=== PATIENT | male | born 1975 | race Caucasian/White ===

== ENCOUNTER → 2017-10-25 | Outpatient (CLI) | payer OTHER ==
[2017-10-25 17:23] LABS: BASO % 0.5 % (0.0-1.0); EOS % 0.4 % (0.0-3.0); HEMATOCRIT 49.1 % (42.0-52.0); HEMOGLOBIN 16.3 g/dl (13.5-17.5); IMMATURE GRANULOCYTE % 0.3 % (0-3.0); LYMPH % 26.4 % (24.0-44.0); MEAN CORPUSCULAR HGB CONC 33.2 g/dl (32.0-36.5); MEAN CORPUSCULAR VOLUME 93.5 fl (80.0-96.0); MONO # 0.6 10^3/uL (0.0-0.8); NEUTROPHILS % 64.4 % (36.0-66.0); PLATELET COUNT, AUTOMATED 226 10^3/uL (150-450); RED BLOOD COUNT 5.25 10^6/uL (4.30-6.10); RED CELL DISTRIBUTION WIDTH 12.9 % (11.5-14.5); WHITE BLOOD COUNT 7.7 10^3/uL (4.0-10.0)
[2017-10-25 17:41] LABS: ALBUMIN 4.1 GM/DL (3.2-5.2); ALBUMIN/GLOBULIN RATIO 1.28 (1.00-1.93); ALKALINE PHOSPHATASE 53 U/L (45-117); ALT/SGPT 44 U/L (12-78); ANION GAP 10 MEQ/L (8-16); AST/SGOT 13 U/L (7-37); BILIRUBIN,TOTAL 0.5 MG/DL (0.2-1.0); BLOOD UREA NITROGEN 15 MG/DL (7-18); C REACTIVE PROTEIN QUANTITATIV < 0.30 MG/DL (0.00-0.30); CALCIUM LEVEL 8.9 MG/DL (8.5-10.1); CARBON DIOXIDE LEVEL 24 MEQ/L (21-32); CHLORIDE LEVEL 107 MEQ/L (98-107); FREE T4 1.06 NG/DL (0.76-1.46); GLOMERULAR FILTRATION RATE > 60.0 (>60); GLUCOSE, FASTING 101 MG/DL (70-100); POTASSIUM SERUM 4.4 MEQ/L (3.5-5.1); SODIUM LEVEL 141 MEQ/L (136-145); TOTAL PROTEIN 7.3 GM/DL (6.4-8.2)
[2017-10-27 15:01] LABS: PSA TOTAL 0.9 ng/mL (0.0-4.0)
== END ==
LOC: M WUC 10:53
DX: R30.0 Dysuria (principal); R39.12 Poor urinary stream
CPT/HCPCS: 84443

== ENCOUNTER → 2017-11-15 | Outpatient (REF) | payer OTHER ==
[2017-11-15 14:16] LABS: AMORPHOUS SEDIMENT LARGE (NEGATIVE); APPEARANCE, URINE TURBID (CLEAR); BACTERIA, URINE AUTO NEGATIVE (NEGATIVE); BILIRUBIN, URINE AUTO NEGATIVE (NEGATIVE); BLOOD, URINE BLOOD 1+ (NEGATIVE); COLOR, URINE YELLOW (YELLOW); GLUCOSE, URINE (UA) AUTO NEGATIVE (NEGATIVE); KETONE, URINE AUTO NEGATIVE (NEGATIVE); LEUKOCYTE ESTERASE, URINE AUTO NEGATIVE (NEGATIVE); MUCUS, URINE SMALL (NEGATIVE); NITRITE, URINE AUTO NEGATIVE (NEGATIVE); PROTEIN, URINE AUTO NEGATIVE (NEGATIVE); RBC, URINE AUTO 0 /HPF (0-3); SPECIFIC GRAVITY URINE AUTO 1.024 (1.002-1.035); SQUAMOUS EPITHELIAL CELL UR AU 0 /HPF (0-6); UROBILINOGEN, URINE AUTO 0.2 mg/dL (0.0-2.0); WBC, URINE AUTO 0 /HPF (0-3)
== END ==
LOC: M SMT 13:26
DX: R39.198 Other difficulties with micturition (principal)

== ENCOUNTER → 2017-12-14 | Outpatient (REF) | payer OTHER ==
[2017-12-14 17:55] LABS: APPEARANCE, URINE CLEAR (CLEAR); BACTERIA, URINE AUTO NEGATIVE (NEGATIVE); BILIRUBIN, URINE AUTO NEGATIVE (NEGATIVE); BLOOD, URINE BLOOD 1+ (NEGATIVE); COLOR, URINE YELLOW (YELLOW); GLUCOSE, URINE (UA) AUTO NEGATIVE (NEGATIVE); KETONE, URINE AUTO NEGATIVE (NEGATIVE); LEUKOCYTE ESTERASE, URINE AUTO NEGATIVE (NEGATIVE); MUCUS, URINE SMALL (NEGATIVE); NITRITE, URINE AUTO NEGATIVE (NEGATIVE); PROTEIN, URINE AUTO NEGATIVE (NEGATIVE); RBC, URINE AUTO 2 /HPF (0-3); SPECIFIC GRAVITY URINE AUTO 1.024 (1.002-1.035); SQUAMOUS EPITHELIAL CELL UR AU 0 /HPF (0-6); WBC, URINE AUTO 1 /HPF (0-3)
== END ==
LOC: M SMT 17:15
DX: R39.198 Other difficulties with micturition (principal)

== ENCOUNTER 2017-12-15 09:28 | Day surgery (SDC) | payer OTHER ==
[2017-12-15] MEDS: CIPROFLOXACIN 400 MG in APPROPRIATE DILUENT 1 EA IV (10:18)
[2017-12-15] MEDS: GENTAMICIN 100 MG in APPROPRIATE DILUENT 1 EA IV (10:18)
[2017-12-15 10:20] LABS: PROTHROMBIN TIME 13.3 SECONDS (12.1-14.4)
[2017-12-15 10:21] LABS: PARTIAL THROMBOPLASTIN TIME 35.1 SECONDS (25.4-37.6)
[2017-12-15 10:25] LABS: BASO # 0.1 10^3/uL (0.0-0.2); BASO % 0.7 % (0.0-1.0); EOS # 0.1 10^3/uL (0.0-0.50); EOS % 0.7 % (0.0-3.0); HEMATOCRIT 51.5 % (42.0-52.0); HEMOGLOBIN 17.1 g/dl (13.5-17.5); IMMATURE GRANULOCYTE % 0.4 % (0-3.0); LYMPH # 2.2 10^3/uL (1.5-4.5); MEAN CORPUSCULAR HEMOGLOBIN 31.1 pg (27.0-33.0); MEAN CORPUSCULAR HGB CONC 33.2 g/dl (32.0-36.5); MEAN CORPUSCULAR VOLUME 93.6 fl (80.0-96.0); MONO # 0.6 10^3/uL (0.0-0.8); MONO % 7.7 % (0.0-5.0); NEUTROPHILS # 4.3 10^3/uL (1.8-7.7); NEUTROPHILS % 59.5 % (36.0-66.0); PLATELET COUNT, AUTOMATED 204 10^3/uL (150-450); RED CELL DISTRIBUTION WIDTH 12.9 % (11.5-14.5); WHITE BLOOD COUNT 7.2 10^3/uL (4.0-10.0)
[2017-12-15 10:52] LABS: ALBUMIN 4.1 GM/DL (3.2-5.2); ALBUMIN/GLOBULIN RATIO 1.14 (1.00-1.93); ALKALINE PHOSPHATASE 56 U/L (45-117); ALT/SGPT 61 U/L (12-78); ANION GAP 4 MEQ/L (8-16); AST/SGOT 19 U/L (7-37); BILIRUBIN,TOTAL 0.6 MG/DL (0.2-1.0); BLOOD UREA NITROGEN 19 MG/DL (7-18); CALCIUM LEVEL 9.2 MG/DL (8.5-10.1); CARBON DIOXIDE LEVEL 30 MEQ/L (21-32); CHLORIDE LEVEL 105 MEQ/L (98-107); CREATININE FOR GFR 0.98 MG/DL (0.70-1.30); GLOMERULAR FILTRATION RATE > 60.0 (>60); GLUCOSE, FASTING 108 MG/DL (70-100); POTASSIUM SERUM 4.3 MEQ/L (3.5-5.1); SODIUM LEVEL 139 MEQ/L (136-145); TOTAL PROTEIN 7.7 GM/DL (6.4-8.2)
[2017-12-15] MEDS ORDERED: MIDAZOLAM INJ 2 MG/2 ML VIAL (J2250) As Ordered (11:08)
[2017-12-15] MEDS ORDERED: ONDANSETRON 4MG/2ML VIAL (J2405) As Ordered (11:08)
[2017-12-15] MEDS ORDERED: LIDOCAINE 2% INJ 100 MG/5 ML SDV (FOR ANES.) As Ordered (11:08)
[2017-12-15] MEDS ORDERED: dexameTHASONE 4 MG/ML 1ML VIAL (J1100) As Ordered (11:08)
[2017-12-15] MEDS ORDERED: PROPOFOL 200 MG/20 ML VIAL As Ordered (11:08)
[2017-12-15] MEDS ORDERED: fentaNYL 100 MCG/2 ML INJECTION (J3010) As Ordered (11:08)
[2017-12-15] MEDS ORDERED: LIDOCAINE 2% 5ML JELLY UROJET As Ordered (12:17)
[2017-12-15] MEDS ORDERED: BACITRACIN OINT 30GM As Ordered (12:25)
[2017-12-15] MEDS ORDERED: ACETAMINOPHEN 650 MG SUPP As Ordered (12:25)
[2017-12-15] MEDS ORDERED: LR 1,000 ML IV ×2 (13:00→13:30)
[2017-12-15] MEDS ORDERED: PERCOCET 5MG/325MG TAB PO (13:00)
[2017-12-15] MEDS ORDERED: fentaNYL 100 MCG/2 ML INJECTION (J3010) IV (13:00)
[2017-12-15] MEDS ORDERED: MORPHINE 10 MG/ML 1ML VIAL (J2270) IV (13:00)
[2017-12-15] MEDS ORDERED: LIDOCAINE 2% JELLY 30 ML TOP (13:30)
[2017-12-15] MEDS ORDERED: ACETAMINOPHEN 500 MG TAB As Ordered (14:31)
[2017-12-15] MEDS: ACETAMINOPHEN 500 MG TAB PO (14:34)
[2017-12-15] MEDS ORDERED: CIPROFLOXACIN 500 MG TAB PO (18:00)
[2017-12-16] MEDS ORDERED: TAMSULOSIN 0.4 MG CAP PO (09:00)
== END 2017-12-15 15:44 | disposition home or self-care (01) ==
LOC: M SDC 15:44
DX: N42.83 Cyst of prostate (principal)
CPT/HCPCS: 52601

== ENCOUNTER → 2017-12-15 | Outpatient (CLI) | payer OTHER | LOC: M RAD 07:41 | DX: N40.1 Benign prostatic hyperplasia with lower urinary tract symptoms (principal); R39.198 Other difficulties with micturition | CPT/HCPCS: 76872 ==

== ENCOUNTER → 2020-08-14 | Outpatient (CLI) | payer OTHER ==
[~2020-08-14] MED LIST: CIPR-249 PO; FLOM0.4C39 PO
== END ==
LOC: M LABSMTC 09:33
PROVIDERS: ATTEND Anesthesiology
DX: Z01.818 Encounter for other preprocedural examination (principal); Z11.52 Encounter for screening for COVID-19

== ENCOUNTER 2020-08-19 10:34 | Day surgery (SDC) | payer OTHER ==
[~2020-08-19] VITALS: Ht 182.9 cm; Wt 100.9 kg
[~2020-08-19 10:34] MED LIST changes: +LIDOCAINE 2% 100MG/5ML SDV (FOR ANES.) As Ordered ONE; +LR 1,000 ML IV ONE; +MIDAZOLAM INJ 2MG/2ML VIAL (J2250 PER 1MG) As Ordered ONE; +ROCURONIUM BROMIDE 50 MG/5 ML VIAL As Ordered ONE; +fentaNYL 250 MCG/5 ML INJECTION (J3010) As Ordered ONE; +propofoL 200 MG/20 ML VIAL As Ordered ONE
[2020-08-19] MEDS ORDERED: BUPIVACAINE HCL 0.25% 30ML VIAL As Ordered ONE (13:42)
[2020-08-19] MEDS ORDERED: LACRILUBE (AKWA TEARS) OPHTH OINT 3.5 GM As Ordered ONE (14:11)
[2020-08-19] MEDS ORDERED: ONDANSETRON 4MG/2ML VIAL As Ordered ONE (14:51)
[2020-08-19] MEDS ORDERED: ACETAMINOPHEN 1000MG 100ML IV BTL (OFIRMEV) (J0131 PER 10MG) As Ordered ONE (14:51)
[2020-08-19] MEDS ORDERED: KETOROLAC 60MG 2ML VIAL As Ordered ONE (14:51)
[2020-08-19] MEDS ORDERED: dexameTHASONE 4 MG/ML 1ML VIAL (J1100 PER 1MG) As Ordered ONE (14:51)
[2020-08-19] MEDS ORDERED: ROCURONIUM BROMIDE 50 MG/5 ML VIAL As Ordered ONE (15:05)
[2020-08-19] MEDS ORDERED: HYDROmorphone HCL 2 MG/ML 1ML VIAL (J1170) As Ordered ONE (15:15)
[2020-08-19] MEDS ORDERED: SUGAMMADEX SODIUM 500 MG/5 ML VIAL (BRIDION) As Ordered ONE (16:37)
[2020-08-19] MEDS ORDERED: oxyCODONE 5MG TAB PO PRN (17:35)
[2020-08-19] MEDS ORDERED: LR 1,000 ML IV SCH (17:35)
[2020-08-19] MEDS ORDERED: MEPERIDINE INJ 25 MG/ML VIAL (J2175) IV PRN (17:35)
[2020-08-19] MEDS ORDERED: fentaNYL 100 MCG/2 ML INJECTION (J3010) IV PRN (17:35)
[2020-08-19] MEDS ORDERED: ONDANSETRON 4MG/2ML VIAL IV PRN (17:35)
[2020-08-19] MEDS ORDERED: NORCO, ANEXSIA 5/325MG TABLET (HYDROcodone/ACETAMINOPHEN) PO PRN (18:00)
[2020-08-19] MEDS ORDERED: IBUPROFEN 600MG TAB PO PRN (18:00)
[2020-08-19] MEDS ORDERED: ACETAMINOPHEN TAB 650MG DOSE (2X325MG) PO PRN (18:00)
[2020-08-19 19:09] VITALS: BP 140/86
--- NOTE | 2020-08-22 22:49 | RO ---
OPERATIVE NOTE DATE OF OPERATION: 08/19/2020 PREOPERATIVE DIAGNOSIS: Bilateral inguinal hernias. POSTOPERATIVE DIAGNOSIS: Bilateral inguinal hernias. PROCEDURE: Robotic assisted laparoscopic bilateral inguinal hernia repair with mesh on the left side. The mesh utilized was [employer] ProGrip reference code [id number] and lot number [id number]. On the right hand side, a second piece of [employer] ProGrip was used which was from the same lot number and reference code as used on the left hand side. SURGEON: Dennis Summers MD [employer] UNDERWRITER: JANE Mosqueda ANESTHESIA: General INDICATIONS FOR THE PROCEDURE: The patient is a 45-year-old man who has noticed a left inguinal hernia. On examination, he was found to have a definite reducible left inguinal hernia and a small protrusion at the right external ring consistent with a small right inguinal hernia. He is now for bilateral inguinal hernia repairs. DESCRIPTION OF PROCEDURE: The patient was brought to the operating room and placed on the table in a supine position. He was placed under general endotracheal anesthesia. TEDs and sequentials were utilized. The patient's abdomen was prepped and draped in a sterile fashion. 25% Marcaine was infiltrated at each of the trocar sites. The initial incision was in the supraumbilical location. A short transverse incision was made and a Veress needle was inserted. After positive hanging drop test, the abdomen was inflated with carbon dioxide gas. An 8 mm robotic port was placed over a 5 mm scope and advanced to the abdominal wall without difficulty. Initial examination showed no evidence of trocar or Veress needle injury. Two additional 8 mm ports were placed in the right and left upper quadrants about at the same level as the supraumbilical port. The patient was placed in a roughly 15 degree Trendelenburg position. The patient cart of da Lisa XI robot was brought into the position and the endoscope arm was docked to the supraumbilical port. Targeting took place in the pelvis. The additional arms were docked and a cauterizing scissor and fenestrated bipolar were then inserted. I then moved to the control console to proceed with the operation. Jing Marrero remained at the bedside to assist in preparation of the mesh, insertion of sutures, mesh and change of instruments. Initial inspection showed a definite peritoneal sac on the left. There was not a definite sac on the right. Attention was turned to the left inguinal hernia first. A peritoneal flap was created by beginning an incision approximately 5 cm superior to the superior edge of the hernia defect. This was started at the medial umbilical ligament and extended laterally and then inferiorly toward the anterior superior iliac spine. Dissection medially was carried down to expose the area of the symphysis pubis and the 's ligament with the femoral canal. Laterally, the flap with some underlying preperitoneal fat was developed further and finally the hernia sac itself was freed from within the inguinal canal and reduced and from the underlying cord structures. The vas deferens was identified and preserved. A moderate herniation of preperitoneal fat was identified into the inguinal canal and this was reduced and then excised and set aside in the lower abdomen for later removal. The fascial defect did not require closure. The 10 x 15 cm ProGrip mesh was trimmed at the corners and folded and then inserted into the abdomen. This was placed into the preperitoneal space and centered over the fascial defect and then unfolded. The adherent side of the mesh was pressed gently into the soft tissues and fascia and adhered nicely. This extended down to cover the femoral canal. The peritoneal flap was then closed with a running suture of absorbable 2-0 V-Loc. The hernia sac was incorporated into the closure to prevent this from protruding. Attention was then turned to the right side. There was no definite peritoneal sac identified. Because he had a palpable bulge at the external ring, I elected to proceed. A peritoneal flap was created on the right, very similar to the left. Care was taken to avoid the inferior epigastric vessels. The preperitoneal space was developed similarly to the left side extending down to expose the femoral canal and there was no evidence of femoral hernia. The spermatic cord structures were identified and preserved. There was a moderate sized herniation of preperitoneal fat identified on the right similar to what had been presence on the left. This was reduced from the inguinal canal and excised. A second Progrip mesh was then also trimmed at the corners and folded and inserted and this was placed into the peritoneal space. The mesh was unfolded and pressed into the tissues. The peritoneal flap was then closed with a running suture of absorbable 2-0 V-Loc. There were two small peritoneal defects in the flap and these were closed with a running suture of 2-0 Vicryl. As the flap was being closed on the right, the patient was returned to a flat position and the pressure within the abdomen was reduced. The fragments of preperitoneal fat were placed into a specimen retrieval bag. All suture needles were recovered. Final inspection revealed excellent closure on both sides. The robot was then un-docked and withdrawn. The abdomen was deflated and the trocars were removed. I returned to the patient's bedside. The specimen retrieval bag was pulled up through the right sided trocar site and it was possible to remove the fat through the incision, to some extent morcellating the tissues with a Darlene clamp and removing this. The incisions were then all closed with buried sutures of 4-0 Vicryl and Steri-Strips. The patient tolerated the procedure well without apparent complication. He was awakened in the operating room, extubated and moved to the recovery room in stable condition.
== END 2020-08-19 19:09 | disposition home or self-care (01) ==
LOC: M SDC 10:34
PROVIDERS: ATTEND Surgery
DX: K40.20 Bilateral inguinal hernia, without obstruction or gangrene, not specified as recurrent (principal); D17.79 Benign lipomatous neoplasm of other sites; R06.83 Snoring
CPT/HCPCS: 49650; 88304; C1781; J0131; J1100; J1170; J1885; J2250; J2405; J3010; S2900

== ENCOUNTER → 2021-04-22 | Outpatient (REF) | payer OTHER ==
[~2021-04-22] MED LIST changes: -LIDOCAINE 2% 100MG/5ML SDV (FOR ANES.) As Ordered ONE; -LR 1,000 ML IV ONE; -MIDAZOLAM INJ 2MG/2ML VIAL (J2250 PER 1MG) As Ordered ONE; -ROCURONIUM BROMIDE 50 MG/5 ML VIAL As Ordered ONE; -fentaNYL 250 MCG/5 ML INJECTION (J3010) As Ordered ONE; -propofoL 200 MG/20 ML VIAL As Ordered ONE
[2021-04-22 16:00] LABS: HEMATOCRIT 50.9 % (42.0-52.0); HEMOGLOBIN 17.2 g/dl (13.5-17.5); MEAN CORPUSCULAR HEMOGLOBIN 31.4 pg (27.0-33.0); MEAN CORPUSCULAR HGB CONC 33.8 g/dl (32.0-36.5); MEAN CORPUSCULAR VOLUME 92.9 fl (80.0-96.0); PLATELET COUNT, AUTOMATED 232 10^3/uL (150-450); RED BLOOD COUNT 5.48 10^6/uL (4.30-6.10); WHITE BLOOD COUNT 8.4 10^3/uL (4.0-10.0)
[2021-04-22 16:26] LABS: ALT/SGPT 52 U/L (12-78); AMYLASE 34 U/L (25-115); BILIRUBIN,TOTAL 0.5 MG/DL (0.2-1.0); BLOOD UREA NITROGEN 11 MG/DL (7-18); CALCIUM LEVEL 9.8 MG/DL (8.5-10.1); CARBON DIOXIDE LEVEL 33 MEQ/L (21-32); CHLORIDE LEVEL 104 MEQ/L (98-107); GLOMERULAR FILTRATION RATE > 60.0 (>60); GLUCOSE, FASTING 88 MG/DL (70-100); LIPASE 71 U/L (73-393); POTASSIUM SERUM 4.6 MEQ/L (3.5-5.1); SODIUM LEVEL 139 MEQ/L (136-145); TOTAL PROTEIN 7.3 GM/DL (6.4-8.2)
== END ==
LOC: M SFHCADAM 13:38
PROVIDERS: ATTEND Family Medicine
DX: R10.13 Epigastric pain (principal)

== ENCOUNTER → 2022-05-14 | Outpatient (REF) | payer OTHER | LOC: M SFHCADAM 07:57 | PROVIDERS: ATTEND Physician Assistant | DX: S20.169A Insect bite (nonvenomous) of breast, unspecified breast, initial encounter (principal) ==

== ENCOUNTER 2023-03-08 07:38 | Day surgery (SDC) | payer OTHER ==
[~2023-03-08] VITALS: Ht 182.9 cm; Wt 107.2 kg
[~2023-03-08 07:38] MED LIST changes: +NS 1,000 ML IV ONE
[2023-03-08] MEDS ORDERED: propofoL 200 MG/20 ML VIAL As Ordered ONE ×2 (08:54→09:05)
[2023-03-08] MEDS ORDERED: LIDOCAINE 2% 100MG/5ML SDV (FOR ANES.) As Ordered ONE (08:54)
[2023-03-08 09:17] VITALS: TEMP 98.5
[2023-03-08 09:40] VITALS: BP 148/96; O2SAT 96
== END 2023-03-08 09:46 | disposition home or self-care (01) ==
LOC: M OPP 07:38
PROVIDERS: ATTEND Internal Medicine Gastroenterology
DX: Z12.11 Encounter for screening for malignant neoplasm of colon (principal); Z83.719 Family history of colon polyps, unspecified; D12.6 Benign neoplasm of colon, unspecified; K57.30 Diverticulosis of large intestine without perforation or abscess without bleeding; K64.4 Residual hemorrhoidal skin tags; K64.8 Other hemorrhoids

== ENCOUNTER → 2023-07-06 | Outpatient (REF) | payer OTHER ==
[~2023-07-06] MED LIST changes: -NS 1,000 ML IV ONE
[2023-07-06 14:50] LABS: C REACTIVE PROTEIN QUANTITATIV < 0.40 MG/DL (<1.0)
[2023-07-06 14:52] LABS: ALBUMIN 3.9 G/DL (3.2-5.2); ALKALINE PHOSPHATASE 61 U/L (46-116); ALT/SGPT 60 U/L (7.0-40); AST/SGOT 16 U/L (<34); BASO # 0.1 10^3/uL (0.0-0.2); BASO % 0.8 % (0.0-1.0); BILIRUBIN,TOTAL 0.6 MG/DL (0.3-1.2); BLOOD UREA NITROGEN 13 MG/DL (9-23); CALCIUM LEVEL 9.2 MG/DL (8.5-10.1); CARBON DIOXIDE LEVEL 26 MMOL/L (20-31); CHLORIDE LEVEL 107 MMOL/L (98-107); CREATININE FOR GFR 0.83 MG/DL (0.70-1.30); EOS % 0.5 % (0.0-3.0); GLOMERULAR FILTRATION RATE > 60.0 (>56); GLUCOSE, FASTING 116 MG/DL (60-100); HEMATOCRIT 51.5 % (42.0-52.0); HEMOGLOBIN 17.2 g/dl (13.5-17.5); LYMPH # 1.5 10^3/uL (1.5-5.0); LYMPH % 24.4 % (24.0-44.0); MEAN CORPUSCULAR HEMOGLOBIN 32.3 pg (27.0-33.0); MEAN CORPUSCULAR HGB CONC 33.4 g/dl (32.0-36.5); MEAN CORPUSCULAR VOLUME 96.6 fl (80.0-96.0); MONO # 0.7 10^3/uL (0.0-0.8); MONO % 10.3 % (2.0-8.0); NEUTROPHILS % 63.4 % (36.0-66.0); PLATELET COUNT, AUTOMATED 215 10^3/uL (150-450); POTASSIUM SERUM 4.8 MMOL/L (3.5-5.1); RED BLOOD COUNT 5.33 10^6/uL (4.30-6.10); SODIUM LEVEL 139 MMOL/L (136-145); TOTAL PROTEIN 7.1 G/DL (5.7-8.2); WHITE BLOOD COUNT 6.3 10^3/uL (4.0-10.0)
[2023-07-06 15:08] LABS: ERYTHROCYTE SEDIMENTATION RATE 29 mm/hr (0-20)
== END ==
LOC: M SFHCADAM 09:41
PROVIDERS: ATTEND Physician Assistant
DX: R59.0 Localized enlarged lymph nodes (principal)

== ENCOUNTER → 2023-11-18 | Outpatient (REF) | payer OTHER | LOC: M SMT 13:12 | PROVIDERS: ATTEND Urology | DX: Z30.2 Encounter for sterilization (principal) ==

== ENCOUNTER → 2024-02-17 | Outpatient (REF) | payer OTHER ==
[2024-02-17 11:08] LABS: SEMEN APPEARANCE OPAQUE (OPAQUE); SEMEN VISCOSITY VISCOUS (LIQUID); SEMEN VOLUME 1.1 ml (2.0-5.0)
[2024-02-17 11:09] LABS: WBC CONCENTRATION <=1 M/ml (<=1 M/ml)
== END ==
LOC: M SMT 10:30
PROVIDERS: ATTEND Urology
DX: Z30.8 Encounter for other contraceptive management (principal)

== ENCOUNTER → 2024-02-29 | Outpatient (REF) | payer OTHER ==
[2024-02-29 13:13] LABS: ALBUMIN 3.8 G/DL (3.2-5.2); ALKALINE PHOSPHATASE 50 U/L (40-129); ALT/SGPT 51 U/L (7.0-40); AST/SGOT 17 U/L (<34); BILIRUBIN,TOTAL 0.6 MG/DL (0.3-1.2); BLOOD UREA NITROGEN 20 MG/DL (9-23); CALCIUM LEVEL 9.4 MG/DL (8.5-10.1); CARBON DIOXIDE LEVEL 27 MMOL/L (20-31); CHLORIDE LEVEL 107 MMOL/L (98-107); CHOLESTEROL LEVEL 203 MG/DL (<200); CHOLESTEROL RISK RATIO 3.46 (<5); CREATININE FOR GFR 0.98 MG/DL (0.70-1.30); GLOMERULAR FILTRATION RATE > 60.0 (>56); GLUCOSE, FASTING 109 MG/DL (60-100); HDL CHOLESTEROL 58.6 MG/DL (>40); LDL CHOLESTEROL 128.8 MG/DL (<100); NON-HDL-C 144.4 MG/DL; PSA SCREENING 0.84 NG/ML (< 4.00); SODIUM LEVEL 141 MMOL/L (136-145); TOTAL PROTEIN 7.2 G/DL (5.7-8.2); TRIGLYCERIDES LEVEL 78 MG/DL (<150)
[2024-02-29 13:15] LABS: FREE T4 1.21 NG/DL (0.89-1.76)
[2024-02-29 14:53] LABS: HEMOGLOBIN A1c 5.7 % (4.0-6.0)
== END ==
LOC: M SFHCADAM 08:10
PROVIDERS: ATTEND Family Medicine
DX: R53.83 Other fatigue (principal); R59.0 Localized enlarged lymph nodes; Z13.220 Encounter for screening for lipoid disorders; E66.9 Obesity, unspecified; I10 Essential (primary) hypertension; Z12.5 Encounter for screening for malignant neoplasm of prostate